=== PATIENT | female | born 1930 | race Caucasian/White ===

== ENCOUNTER 2018-09-30 06:25 | Outpatient (CLI) | payer MEDICARE, BC ==
[~2018-09-30] VITALS: Ht 160 cm; Wt 86.3 kg
[2018-09-30] VITALS (11 sets, daily range): BP systolic 130–195; BP diastolic 48–76; PULSE 60–81; TEMP 98–98.4
[~2018-09-30 06:25] MED LIST: AMARYL1 MG PO; ASPIRIN 81M81 MG/TA2 PO; COLACE 100100 MG/CAP PO; DEMADEX 20MG20 M1 PO; ELIQUIS 2.5 PO; K-DUR 10 MEQ T10 MEQ PO; LUTEIN6 MG; MULTI VITAMINS1 TAB PO; NITROSTAT0.3 MG SL; PACERONE200 MG PO
== END 2018-09-30 11:00 | disposition home or self-care (01) ==
LOC: COL.RAD 06:25
DX: R04.2 Hemoptysis (principal); R91.8 Other nonspecific abnormal finding of lung field